=== PATIENT | female | born 1970 | race Caucasian/White ===

== ENCOUNTER 2017-09-07 15:22 | Emergency (ER) | payer OTHER ==
[~2017-09-07] VITALS: Ht 165.1 cm; Wt 100.0 kg
[~2017-09-07 15:22] MED LIST: ALLERCLEAR10 M1 OR; AZITHROMYCIN500 MG PO; BACTRIM DS1 TAB PO; C 500 PO; CIPRODEX1 ML AS; CIPROFLOXACN500 MG PO; CLARITHROMYC500 MG PO; CYTOTEC200 MCG PO; DOXYCYCL HYC100 MG PO; FLEXERIL5 M1 PO; FLONASE NASAL50 MCG; HYDROXYZ HCL25 MG PO; IBUPROFEN600 MG PO; INTEGRA F PO; L-LYSINE1000 M1 PO; LEVAQUIN500 MG PO; LORTAB 7.5; LORTAB 7.5 PO; MEDDOSEPAK PO; MEGACE40 MG PO; MELOXICAM15 MG OR; MELOXICAM15 MG PO; MIDOL200 MG OR; MULTIVITAMI1 PO; NAPROSYN500 MG PO; NITROFURANTN100 M2 PO; OMEPRAZOLE20 MG PO; PEPCID20 MG OR; POLYTRIM OU; PREDNISONE10 MG PO; PROVENTIL HFA IN; SILVADENE1 % TOP; TOBRAMYCIN0.3 % OP; TOBRAMYCIN0.3 % OU; ZITHROMAX250 MG PO; ZITHROMAX500 MG PO; ZPAK PO; ZYRTEC-D AL1 OR; ZYRTEC10 M1 PO; ZYRTEC10 MG PO; [UNRECOGNIZED DRUG - CODE] OU; [UNRECOGNIZED DRUG - REMARK]
[2017-09-07 16:58] LABS: URINE BILIRUBIN - DIPSTICK NEGATIVE (NEGATIVE); URINE BLOOD DIPSTICK NEGATIVE (NEGATIVE); URINE COLOR YELLOW; URINE GLUCOSE - DIPSTICK NEGATIVE (NEGATIVE); URINE KETONE NEGATIVE (NEGATIVE); URINE LEUK ESTERASE NEGATIVE (Negative); URINE NITRITE - DIPSTICK NEGATIVE (Negative); URINE PROTEIN - DIPSTICK NEGATIVE (NEG-TRACE); URINE SPECIFIC GRAVITY >=1.030; URINE UROBILINOGEN - DIPSTICK 0.2 E.U./dL (0.2)
[2017-09-07 17:00] LABS: URINE CLARITY CLEAR
[2017-09-07] MEDS ORDERED: MEDDOSEPAK PO (17:20)
[2017-09-07] MEDS ORDERED: TORADOL PO (17:20)
[2017-09-07] MEDS ORDERED: FLEXERIL PO (17:20)
[2017-09-07 18:10] VITALS: BP 133/79
== END 2017-09-07 18:10 | disposition home or self-care (01) | DRG 563 ==
LOC: ED 15:22
PROVIDERS: Emergency Medicine
DX: S39.012A Strain of muscle, fascia and tendon of lower back, initial encounter (principal); G89.29 Other chronic pain; M54.5 Low back pain

== ENCOUNTER 2022-05-27 07:55 | Day surgery (SDC) | payer OTHER ==
[~2022-05-27] VITALS: Ht 165.1 cm; Wt 118.8 kg
[~2022-05-27 07:55] MED LIST changes: +BUPROPION150 M3 PO; +FLEXERIL PO; +HYDROCHLOROQUINE; +LISINOPRIL10 MG PO; +LORATADINE10 M1 PO; +TORADOL PO; +TRIAMCINOLON0.11 EX; +[UNRECOGNIZED DRUG - CODE] OU
[2022-05-27 10:00] VITALS: BP 125/80
== END 2022-05-27 10:20 | disposition home or self-care (01) | DRG 951 ==
LOC: ENDO 07:55
PROVIDERS: ATTEND Surgery
PROC: 0DJD8ZZ Inspection of Lower Intestinal Tract, Via Natural or Artificial Opening Endoscopic (ICD-10-PCS; principal; 2022-05-27)
DX: Z12.11 Encounter for screening for malignant neoplasm of colon (principal); K64.4 Residual hemorrhoidal skin tags; I10 Essential (primary) hypertension

== ENCOUNTER 2024-06-21 23:04 | Emergency (ER) | payer BC ==
[~2024-06-21] VITALS: Ht 165.1 cm; Wt 129.0 kg
[~2024-06-21 23:04] MED LIST changes: +ALLERGY RELF10 M3 PO
[2024-06-22] MEDS ORDERED: SODIUM CHLORIDE 0.9% 1,000 ML IV STA (00:01)
[2024-06-22] MEDS ORDERED: ONDANSETRON HCl 4 MG/2 ML SDV IV ONE (00:05)
[2024-06-22] MEDS ORDERED: KETOROLAC TROMETHAMINE 30 MG/ML SDV IV ONE (00:05)
[2024-06-22 00:39] LABS: BASO% 0.5 % (0-3); EOS% 2.2 % (0-8); HEMATOCRIT 41.7 % (37.0-47.0); HEMOGLOBIN 13.5 g/dl (12.0-16.0); IMMATURE GRANULOCYTES 0.2 % (0.0-5.0); LYMPH% 26.5 % (15-41); MEAN CELL VOLUME 93.9 fL CALC (80.0-100.0); MEAN CORPUSCULAR HGB 30.4 pG CALC (26.0-32.0); MEAN CORPUSCULAR HGB CONC 32.4 g/dL CAL (32.0-36.0); MONO% 10.1 % (2-13); NEUT# 5.73 thou/uL (2.00-7.15); NEUT% 60.5 % (42-76); RED BLOOD COUNT 4.44 mill/uL (4.20-5.60); RED CELL DISTRI WIDTH 13.3 % (11.5-15.5)
[2024-06-22 00:50] LABS: ALBUMIN 4.3 g/dL (3.2-5.0); BILIRUBIN, TOTAL 0.4 mg/dL (0.02-1.3); CREATININE 0.8 mg/dL (0.5-1.0); POTASSIUM 4.3 mmol/l (3.5-5.1); TOTAL PROTEIN 7.2 g/dL (6.3-8.2)
[2024-06-22 01:09] LABS: URINE BILIRUBIN - DIPSTICK Negative (NEGATIVE); URINE BLOOD DIPSTICK Moderate (NEGATIVE); URINE GLUCOSE - DIPSTICK Negative (NEGATIVE); URINE KETONE Negative (NEGATIVE); URINE PROTEIN - DIPSTICK 100 mg/dL (NEG-TRACE); URINE UROBILINOGEN - DIPSTICK 0.2 E.U./dL (0.2)
[2024-06-22 01:12] LABS: URINE COLOR Yellow; URINE LEUK ESTERASE Large (NEGATIVE); URINE NITRITE - DIPSTICK Negative (Negative)
[2024-06-22 01:13] LABS: URINE BACTERIA MANY hpf; URINE EPITHELIAL CELLS MODERATE EPI/hpf (0-FEW); URINE RBC 25-50 RBC/hpf (0-5); URINE WBC >100 WBC/hpf (0-5)
[2024-06-22] MEDS ORDERED: BACTRIM DS1 TAB PO (01:17)
[2024-06-22] MEDS ORDERED: SULFAMETHOXAZOLE W/TRIMETHOPRI 1 COMBO TAB PO ONE (01:20)
[2024-06-22 01:44] VITALS: BP 160/91
== END 2024-06-22 02:02 | disposition home or self-care (01) | DRG 690 ==
LOC: ED 23:04
PROVIDERS: Family Medicine
DX: N12 Tubulo-interstitial nephritis, not specified as acute or chronic (principal); B96.20 Unspecified Escherichia coli [E. coli] as the cause of diseases classified elsewhere
CPT/HCPCS: J2405